=== PATIENT | male | born 1960 | race Asian ===

== ENCOUNTER 2022-08-14 13:19 | Outpatient (CLI) | payer BC, SELFPAY | END 2022-08-14 13:20 | disposition home or self-care (01) | PROVIDERS: PCP Family Medicine; Visit Provider Family Medicine | DX: Z00.00 Encounter for general adult medical examination without abnormal findings (principal); E78.5 Hyperlipidemia, unspecified; I10 Essential (primary) hypertension; E11.9 Type 2 diabetes mellitus without complications; R71.8 Other abnormality of red blood cells; D72.829 Elevated white blood cell count, unspecified; R76.11 Nonspecific reaction to tuberculin skin test without active tuberculosis; Z13.6 Encounter for screening for cardiovascular disorders; Z11.59 Encounter for screening for other viral diseases | CPT/HCPCS: 80053; 80061; 82043; 82570; 82607; 84156; 86803 ==

== ENCOUNTER 2023-12-10 12:19 | Outpatient (CLI) | payer BC, SELFPAY | END 2023-12-10 12:20 | disposition home or self-care (01) | PROVIDERS: PCP Family Medicine; Visit Provider Family Medicine | DX: Z00.00 Encounter for general adult medical examination without abnormal findings (principal); I10 Essential (primary) hypertension; E78.5 Hyperlipidemia, unspecified; E11.9 Type 2 diabetes mellitus without complications | CPT/HCPCS: 80053; 80061; 82043; 82570; 82607 ==

== ENCOUNTER 2023-12-18 10:47 | Outpatient (CLI) | payer BC, SELFPAY ==
--- NOTE | 2023-12-18 11:00 | CRLHL7_ITS ---
For Patients: As a result of the Century Cures Act, medical imaging exams and procedure reports are released immediately into your electronic medical record. You may view this report before your referring provider. If you have questions, please contact your health care provider. INDICATION: Lung cancer screening. History of smoking. High risk patient with greater than 15 pack-year smoking history. TECHNIQUE: Low-dose lung cancer screening non-contrast CT chest. Dose reduction techniques were used. COMPARISON: None. FINDINGS: NODULES: 4.4 millimeter nodule in the lingula, . LUNGS AND PLEURA: Emphysema. Patchy areas of scarring noted bilaterally. No pleural effusion or infiltrate. MEDIASTINUM: No adenopathy. Vascular calcifications. Visualized thyroid normal. CORONARY ARTERY CALCIFICATION: Present. LIMITED UPPER ABDOMEN: Unremarkable. MUSCULOSKELETAL: Discogenic spurring. No fracture. IMPRESSION: 4.4 millimeter lingular nodule. LUNG-RADS CATEGORY: 2: Benign. RADIOLOGIST RECOMMENDATION: Continue annual screening with low-dose CT chest in 12 months. Please note that all CT scans at this facility use dose modulation, iterative reconstruction, and/or weight-based dosing when appropriate to reduce radiation dose to as low as reasonably achievable. Dictated by Eugenio Gómez MD @ 12/18/2023 12:48:38 PM (Electronically Signed)
== END 2023-12-18 10:48 | disposition home or self-care (01) ==
LOC: CT 10:48
PROVIDERS: PCP Family Medicine; Visit Provider Family Medicine
DX: Z12.2 Encounter for screening for malignant neoplasm of respiratory organs (principal); R91.8 Other nonspecific abnormal finding of lung field; F17.200 Nicotine dependence, unspecified, uncomplicated
CPT/HCPCS: 71271

== ENCOUNTER 2023-12-28 07:28 | Outpatient (CLI) | payer BC, SELFPAY ==
--- NOTE | 2023-12-28 08:41 | W.ANESCHARGE ---
Anesthesia Charges Start Date/Time Anesthesia Start Date: 12/28/23 Anesthesia Start Time: 08:11 Stop Date/Time Anesthesia Stop Date: 12/28/23 Anesthesia Stop Time: 08:38
--- NOTE | 2023-12-28 09:34 | W.ANESCHARGE ---
Anesthesia Charges Start Date/Time Anesthesia Start Date: 12/28/23 Anesthesia Start Time: 08:11 Stop Date/Time Anesthesia Stop Date: 12/28/23 Anesthesia Stop Time: 08:38
== END 2023-12-28 07:29 | disposition home or self-care (01) ==
LOC: OP CLINIC 07:29
PROVIDERS: PCP Family Medicine; Visit Provider Internal Medicine
DX: Z12.11 Encounter for screening for malignant neoplasm of colon (principal); Z86.010 Personal history of colon polyps
CPT/HCPCS: 00811; 00812; 45378; J2704

== ENCOUNTER 2025-01-03 10:12 | Outpatient (CLI) | payer BC, SELFPAY | END 2025-01-03 10:13 | disposition home or self-care (01) | PROVIDERS: PCP Family Medicine; Visit Provider Family Medicine | DX: E11.9 Type 2 diabetes mellitus without complications (principal) | CPT/HCPCS: 80053; 80061; 82043; 82570; 82607; G0103 ==

== ENCOUNTER 2025-01-20 06:40 | Outpatient (CLI) | payer BC, SELFPAY ==
--- NOTE | 2025-01-20 07:15 | CRLHL7_ITS ---
For Patients: As a result of the Cures Act, medical imaging exams and procedure reports are released immediately into your electronic medical record. You may view this report before your referring provider. If you have questions, please contact your health care provider. Examination: US abdominal aorta Indication: nicotine dependency. Abdominal aortic aneurysm screening. Technique: Mera scale and color Doppler images of the aorta and common iliac arteries are obtained. Comparison: None Findings: Proximal aorta: 2.2 x 2.3 cm Mid aorta: 2.2 x 1.9 cm Distal aorta: 1.8 x 1.4 cm Right common iliac artery: 1.0 x 1.1 cm Left common iliac artery: 1.2 x 1.1 cm Impression: No abdominal aortic aneurysm. Dictated by Eugenio Gómez MD @ 01/20/2025 10:30:34 AM (Electronically Signed)
--- NOTE | 2025-01-20 08:00 | CRLHL7_ITS ---
For Patients: As a result of the Cures Act, medical imaging exams and procedure reports are released immediately into your electronic medical record. You may view this report before your referring provider. If you have questions, please contact your health care provider. INDICATION: Lung cancer screening. History of smoking. High risk patient with greater than 16 pack-year smoking history. TECHNIQUE: Low-dose lung cancer screening non-contrast CT chest. Dose reduction techniques were used. COMPARISON: 12/18/2023 FINDINGS: NODULES: Stable 4.7 millimeter nodule in the left upper lobe, . LUNGS AND PLEURA: Normal. MEDIASTINUM: No adenopathy. CORONARY ARTERY CALCIFICATION: Severe. LIMITED UPPER ABDOMEN: Stable right adrenal gland. MUSCULOSKELETAL: No fracture. IMPRESSION: Stable left upper lobe nodule. LUNG-RADS CATEGORY: 2: Benign. RADIOLOGIST RECOMMENDATION: Continue annual screening, if eligible, with low-dose CT chest in 12 months. Please note that all CT scans at this facility use dose modulation, iterative reconstruction, and/or weight-based dosing when appropriate to reduce radiation dose to as low as reasonably achievable. Dictated by Eugenio Gómez MD @ 01/20/2025 11:56:38 AM (Electronically Signed)
== END 2025-01-20 06:41 | disposition home or self-care (01) ==
LOC: US 06:40
PROVIDERS: PCP Family Medicine; Visit Provider Family Medicine
DX: Z12.2 Encounter for screening for malignant neoplasm of respiratory organs (principal); F17.200 Nicotine dependence, unspecified, uncomplicated; Z13.6 Encounter for screening for cardiovascular disorders
CPT/HCPCS: 71271; 76706